=== PATIENT | male | born 1970 | race Caucasian/White ===

== ENCOUNTER → 2020-04-26 13:04 | Outpatient (CLI) | payer OTHER, SELFPAY ==
--- NOTE | ~2020-04-26 | XR_ITS ---
XR_CERV2-3V_CR DATE: 04/26/2020 13:19 INDICATION: Neck pain TECHNIQUE: AP, open-mouth, lateral, swimmer views COMPARISON: None FINDINGS: C1 and C2 are normally aligned and the odontoid process is intact. No fracture or dislocati on or locked facet or prevertebral soft tissue swelling. There is straightening of the cervical spine. There is moderate degenerative disease at C4-5, C5-C6 and C6-7. IMPRESSION: Straightening Moderately prominent degenerative disc disease at C4-5, C5-6 and C6-7 Reviewed, dictated and finalized at [facility]. Reviewed, dictated and finalized at [facility].
== END ==
PROVIDERS: PCP Physician Assistant; Visit Provider Physician Assistant
DX: M51.24 Other intervertebral disc displacement, thoracic region (principal)
CPT/HCPCS: 72040

== ENCOUNTER → 2021-09-02 15:24 | Outpatient (CLI) | payer OTHER, SELFPAY ==
--- NOTE | ~2021-09-02 | MR_ITS ---
EXAMINATION: MR cervical spine wo con DATE: 09/02/2021 16:29 INDICATION: Neck pain. Cervical radiculopathy. TECHNIQUE: Magnetic resonance imaging (MRI) of the cervical spine was performed without intravenous c ontrast. Sequences included sagittal T2-weighted FSE, sagittal STIR FSE, sagittal T1-weighted FSE, ax ial MERGE, and axial T2-weighted FSE. COMPARISON: Cervical spine radiographs 04/26/2020 FINDINGS: There is 7 degrees dextrocurvature of cervicothoracic spine. Vertebral body heights are nor mal. There is moderately decreased disc height at C4-C5, C5-C6, and C6-C7. The spinal cord signal int ensity is normal. The following disc levels are specifically discussed: C2-C3: The disc does not extend beyond the endplate margin. There is no uncovertebral joint osteoarth ritis. There is mild bilateral facet joint osteoarthritis. There is no neural foraminal stenosis. The re is no central canal stenosis. C3-C4: The disc does not extend beyond the endplate margin. There is mild bilateral uncovertebral rai nt osteoarthritis. There is moderate bilateral facet joint osteoarthritis. There is mild bilateral ne ural foraminal stenosis. There is no central canal stenosis. C4-C5: The disc is bulging. There is moderate left uncovertebral joint osteoarthritis. There is sever e bilateral facet joint osteoarthritis. There is mild bilateral neural foraminal stenosis. There is m ild central canal stenosis. C5-C6: The disc is bulging. There is moderate right and severe left uncovertebral joint osteoarthriti s. There is mild right and moderate left facet joint osteoarthritis. There is mild right and moderate left neural foraminal stenosis. There is mild central canal stenosis. C6-C7: The disc is bulging. There is moderate bilateral uncovertebral joint osteoarthritis. There is moderate bilateral facet joint osteoarthritis. There is mild bilateral neural foraminal stenosis. The re is mild central canal stenosis. C7-T1: The disc does not extend beyond the endplate margin. There is no uncovertebral joint osteoarth ritis. There is moderate right and severe left facet joint osteoarthritis. There is mild bilateral ne ural foraminal stenosis. There is no central canal stenosis. IMPRESSION: 1. Moderate cervical spondylosis. Reviewed, dictated and finalized at location [facility]. [facility] [employer]
== END ==
PROVIDERS: PCP Physician Assistant; Visit Provider Physician Assistant
DX: M47.22 Other spondylosis with radiculopathy, cervical region (principal)
CPT/HCPCS: 72141

== ENCOUNTER 2023-10-13 09:28 | Outpatient (CLI) | payer OTHER, SELFPAY ==
--- NOTE | 2023-10-26 18:18 | WPDHOMESLEEP ---
Sleep Study - Home Unattended Date of Study: 10/13/23 Ordering Provider: German Sanabria MD Interpreting Provider: Jackie Silva, DO Home Sleep Study Type: Watch PAT Height: 1.75 m Weight: 88.451 kg Body Mass Index: 28.8 Neck Circumference (inches): 16.5 [place]: 7 Reason for Sleep Study Snoring, daytime hypersomnia Sleep History The patient is a 53-year-old male with diabetes, hyperlipidemia and history of tobacco use that had a sleep study ordered by his primary care physician for evaluation of sleep apnea. The patient denies awakening from sleep short of breath. He rarely awakens at night with heartburn, belching or cough. He frequently snores and is frequently loud enough others complain. He rarely has trouble sleeping when he has a cold. He denies waking up gasping for air throughout the night. He frequently has breathing problems at night observed by himself or others. He rarely sweats excessively at night. He denies having heart palpitations or irregular heartbeats during the night. He occasionally falls asleep during the day but never while driving. He denies sleep paralysis and cataplexy. He rarely has trouble at school or work due to sleepiness. He rarely experiences vivid dreamlike scenes upon awakening or falling asleep. He denies feeling afraid of going to sleep. He rarely has nightmares. He occasionally remembers his dreams. He frequently has thoughts racing through his mind. He rarely feels sad or depressed. He occasionally has anxiety. He occasionally has muscular tension. He rarely notices parts of his body jerk. He rarely kicks during the night. He rarely has crawling and aching feelings in his legs and rarely has leg pain during the night. He denies grinding his teeth during sleep and denies awakening with morning jaw pain. He is frequently bothered by pain during the day and occasionally awakened by pain during the night. He occasionally wakes feeling stiff in the morning he occasionally wakes up with sore achy muscles. He frequently wakes up with pain in the neck, spine and other joints. He goes to bed at 11:00 p.m. on weekdays and at midnight on the weekends. The amount of time it takes for him to fall asleep is variable. He wakes up 3-4 times throughout the night to urinate or change position and is able to fall back asleep within 5 minutes. He wakes up at either 5:15 a.m. or 9:00 a.m. on weekdays and at 9:00 a.m. on the weekends. He typically gets 6 hours of sleep per night. He will stay in bed for 5 minutes after waking up in the morning. He currently lives with his he denies consuming any caffeinated beverages within 2 hours of bedtime. He denies engaging in physical exercise before bedtime. He will watch television before falling asleep. He will take naps in the afternoon or the evening but they are not refreshing. He consumes 6 caffeinated beverages per day. He consumes 2 alcoholic beverages per day. He quit smoking cigarettes. He denies recreational drug use. [facility] Surgical History Surgical History History of appendectomy Family History Family History Father Diabetes mellitus Hypertension Hyperlipidemia Grandparent Diabetes mellitus Hypertension Cerebrovascular accident Other Family history of hypercholesterolemia Social History Social History Smoking packs per day: 1 Smoking cigarettes per day: 20.0 Years smoked: 30 Smoking pack-years: 30.00 Smoking status: Former smoker (vaping) Tobacco type: e-cigarettes/vaping Additional smoking assessment comments: currently vaping with nicotine Alcohol intake: current Alcohol use details: social Substance use type: does not use Lack of Transportation: No Lack of Food: Never True Current Housing: [facility]
[2023-10-26 18:28] VITALS: BMI 28.8
== END 2023-10-14 12:46 | disposition home or self-care (01) ==
LOC: ANHCSM 09:29
PROVIDERS: PCP Family Medicine; Visit Provider Family Medicine
DX: G47.30 Sleep apnea, unspecified (principal); G47.33 Obstructive sleep apnea (adult) (pediatric); G47.31 Primary central sleep apnea
CPT/HCPCS: 95800

== ENCOUNTER 2023-11-03 08:45 | Outpatient (CLI) | payer OTHER, SELFPAY ==
--- NOTE | 2023-11-03 08:53 | ECHO_ITS ---
Patient Info Name: Shawn Trevizo Age: 53 years : 1970 Gender: Male Ht: 69 in Wt: 200 lbs BSA: 2.12 m2 HR: 71 bpm BP: 136 / 82 mmHg Technical Quality: Good Exam Date: 11/03/2023 9:02 AM Exam Location: Echo Lab Patient Status: Outpatient Admit Date: 11/03/2023 Staff Ordering Physician: Sandy [employer] Transportation Technician: Attending Provider: German Sanabria MD Referring Physician: Georgia CARRENO; Exam Type: CA echo doppler color flow Study Info Indications - sleep apnea Complete two-dimensional, color flow and Doppler transthoracic echocardiogram is performed. Summary 1. Complete two-dimensional, color flow and Doppler transthoracic echocardiogram is performed. 2. Left ventricular chamber dimension is normal. 3. Left ventricular systolic function is normal, estimated at 60-65%. 4. The left ventricular diastolic function is grade I diastolic dysfunction. 5. E/e' 6 is not elevated. 6. Left atrial chamber dimension is mildly enlarged. 7. No pulmonary hypertension, estimated pulmonary arterial systolic pressure is 27 mmHg. 8. There is trace pulmonic regurgitation. Left Ventricle E/e' 6 is not elevated. Left ventricular chamber dimension is normal. Left ventricular systolic function is normal, estimated at 60-65%. The left ventricular diastolic function is grade I diastolic dysfunction. Right Ventricle Right ventricular systolic function is normal and with normal TAPSE 2.2 cm. Right ventricular chamber dimension is normal. Left Atria Left atrial chamber dimension is mildly enlarged. Right Atria Right atrial chamber dimension is normal. Aortic Valve The aortic valve is trileaflet. There is no aortic valve stenosis. There is no aortic valve regurgitation. Pulmonic Valve There is trace pulmonic regurgitation. Mitral Valve There is no mitral valve stenosis. There is no mitral valve regurgitation. Tricuspid Valve There is no tricuspid valve regurgitation. No pulmonary hypertension, estimated pulmonary arterial systolic pressure is 27 mmHg. Pericardium/Pleural There is no pericardial effusion. Inferior Vena Cava Normal inferior vena cava with >50% collapse upon inspiration consistent with normal right atrial pressure, 5 mmHg. Aorta The aortic root size at the sinus of Valsalva is normal. Left Ventricular Outflow Tract Name Value Normal LVOT 2D LVOT Diameter 2.1 cm LVOT Doppler LVOT Peak Gradient 3 mmHg LVOT Mean Gradient 2 mmHg LVOT VTI 19 cm LVOT VTI/AV VTI Ratio 0.7 LVOT Stroke Volume 68 ml LVOT CO 4.5 l/min LVOT CI 2.1 l/min/m2 Pulmonic Valve Name Value Normal PV Doppler PV Peak Gradient 4 mmHg PV Regurgitation Doppler
== END 2023-11-03 08:46 | disposition home or self-care (01) ==
PROVIDERS: PCP Family Medicine; Visit Provider Family Medicine
DX: G47.33 Obstructive sleep apnea (adult) (pediatric) (principal); G47.31 Primary central sleep apnea
CPT/HCPCS: 93306

== ENCOUNTER 2023-11-09 09:28 | Outpatient (CLI) | payer OTHER, SELFPAY ==
[2023-11-30 23:06] VITALS: BMI 29.2
--- NOTE | 2023-11-30 23:06 | WPDSLEEPSTUD ---
Sleep Study Date of Study: 11/09/23 Ordering Provider: ENDER Wei Interpreting Physician: Shagufta Nieves MD Sleep Study Type: CPAP Titration Height: 1.75 m Weight: 89.811 kg Body Mass Index: 29.2 Neck Circumference (inches): 17 [place]: 7 Reason for Sleep Study * 10/13/2023, WatchPat home sleep test = overall AHI of 17.9 with desaturation down to 85%.? This is consistent with?moderate sleep apnea.?The central apnea index was 8.8. The REM AHI was 41.6. He returns for a CPAP titration. Sleep History Shawn Trevizo is a 53-year-old man with diabetes, hyperlipidemia and history of tobacco use. He had a home sleep test showing moderate obstructive sleep apnea and an elevated central apnea hypopnea index, returns to the sleep alb for a CPAP titration. The patient denies awakening from sleep short of breath.? He rarely awakens at night with heartburn, belching or coughing.? He frequently snores and is frequently loud enough others complain.? He rarely has trouble sleeping when he has a cold.? He denies waking up gasping for air at night.? He frequently has breathing problems at night. He rarely sweats excessively at night.? He denies having heart palpitations or irregular heartbeats during the night.? He occasionally falls asleep during the day but never while driving.? He denies feeling paralyzed on waking or falling asleep. He does not have loss of muscle tone with strong emotion. He rarely has trouble at work due to excessive sleepiness.? He rarely experiences vivid dreamlike scenes upon awakening or falling asleep.? He denies feeling afraid of going to sleep.? He rarely has nightmares.? He occasionally remembers his dreams.? He frequently has thoughts racing through his mind.? He rarely feels sad or depressed.? He occasionally has anxiety.? He occasionally has muscular tension.? He rarely notices parts of his body jerk.? He rarely kicks during the night.? He rarely has crawling and aching feelings in his legs and rarely has leg pain during the night.? He denies grinding his teeth during sleep and denies awakening with morning jaw pain.? He is frequently bothered by pain during the day and occasionally awakened by pain during the night.? He occasionally wakes feeling stiff in the morning he occasionally wakes up with sore achy muscles.? He frequently wakes up with pain in the neck, spine and other joints.? Normal bedtime is 11:00 p.m. on weekdays and at midnight on the weekends.? The amount of time it takes for him to fall asleep is variable.? He wakes up 3-4 times throughout the night to urinate or change position and is able to return to sleep within 5 minutes.? He wakes up at either 5:15 a.m. or 9:00 a.m. on weekdays and at 9:00 a.m. on the weekends. He typically gets 6 hours of sleep per night.? He stays in bed for 5 minutes after waking up in the morning.? He lives with his . He takes naps in the afternoon or the evening, however a short nap is not refreshing. ? Habits: Tobacco: former smoker. Caffeine: 6 caffeinated beverages per day.? Alcohol: 2 alcoholic beverages per day.? Recreational substances: none. [facility] Past Medical History Medical History Central sleep apnea Fatigue Mixed hyperlipidemia MIRTHA (obstructive sleep apnea) Surgical History Surgical History History of appendectomy Family History Family History Father Diabetes mellitus Hypertension Hyperlipidemia Grandparent Diabetes mellitus Hypertension Cerebrovascular accident Other Family history of hypercholesterolemia Social History Social History Smoking packs per day: 1 Smoking cigarettes per day: 20.0 Years smoked: 30 Smoking pack-years: 30.00 Smoking status: Former smoker (vaping) Tobacco type: e-ci
== END 2023-11-10 07:10 | disposition home or self-care (01) ==
LOC: ANHCSM 09:28
PROVIDERS: PCP Family Medicine; Visit Provider Nurse Practitioner Family
DX: G47.31 Primary central sleep apnea (principal)
CPT/HCPCS: 95811

== ENCOUNTER 2024-03-29 07:29 | Outpatient (CLI) | payer OTHER, SELFPAY ==
--- NOTE | ~2024-03-29 | MR_ITS ---
MRI of the cervical spine Clinical History: Radiculopathy Technique: Axial T2-weighted and gradient images, and sagittal T1-weighted, T2-weighted, and STIR jesus manuel ges were acquired. Findings: There is no fracture or subluxation of the cervical spine. Vertebral bodies maintain normal height and alignment. No suspicious bone marrow signal abnormality seen. At C2-C3, there is no disc bulge or herniation. No spinal canal stenosis, cord compression or neural foraminal narrowing. At C3-C4, there is no disc bulge or herniation. There is mild facet arthropathy, left worse than righ t. There is mild left neural foraminal narrowing. Right neural foramen preserved. No canal stenosis o r cord compression. At C4-C5, there is left paracentral disc osteophyte complex with mild facet arthropathy. No spinal ca nal stenosis, cord compression, or definite neural foraminal narrowing. At C5-C6, there is moderate degenerative disc narrowing. There is disc osteophyte complex, most prono unced in the left paracentral region, with mild flattening the ventral cord. There is bilateral neura l foraminal narrowing. At C6-C7, there is moderate degenerative disc narrowing. There is disc osteophyte complex, with mild canal stenosis but no mick cord compression. There is bilateral neural foraminal narrowing. No abnormal signal seen in the spinal cord. Paravertebral soft tissues are unremarkable. Impression: Moderate degenerative spondylosis, especially at C5-C6 and C6-C7, as detailed above. Reviewed, dictated and finalized at [facility]. Impression: Moderate degenerative spondylosis, especially at C5-C6 and C6-C7, as detailed rianna martinez.
== END 2024-03-29 07:30 ==
LOC: MICIMG 07:30
PROVIDERS: PCP Family Medicine; Visit Provider Nurse Practitioner Family
DX: M47.22 Other spondylosis with radiculopathy, cervical region (principal)
CPT/HCPCS: 72141

== ENCOUNTER 2024-08-15 08:10 | Day surgery (SDC) | payer OTHER, SELFPAY ==
[2024-08-03 14:18] VITALS: BMI 30.2
--- NOTE | ~2024-08-15 | XR_ITS ---
EXAMINATION: XR fluoroscopy no charge DATE: 08/15/2024 9:15 [employer] INDICATION: DIG/PROG LEFT C5,C6,C7 MEDIAL BRANCH BLK . TECHNIQUE: 5 fluoroscopic images and 11 cine clips of the cervical spine were obtained during diagnos tic/prognostic left C5, C6, C7 medial branch block, performed by Shawn Simon MD. I was not prese nt during the procedure. Fluoroscopy exposure time was 37.6 seconds. Air Kerma 8.25 mGy. COMPARISON: None FINDINGS/IMPRESSION: Fluoroscopic documentation of diagnostic/prognostic left C5, C6, C7 medial branch block. Please refer to the operative note for complete procedural details . Reviewed, dictated and finalized at location [facility]. [employer]
--- NOTE | 2024-08-15 05:40 | WPDHPUPDATE1 ---
History and Physical Update Update Date/Time: 08/15/24 05:40 History and Physical has been reviewed, including an updated exam of the patient. There are NO changes in the patient's condition. Risks, benefits, and alternatives have been discussed and questions answered. Patient agrees to proceed with procedure.
--- NOTE | 2024-08-15 05:41 | P.OP_ITS ---
Procedure Note - Detailed Date of Procedure 08/15/24 Pre-op Diagnosis Cervicalgia Post-op Diagnosis Same Procedure Performed Diagnostic left Cervical Medial Branch Nerve Blocks at C5, C6, C7 Blocking the Ipsilateral C5-6, C6-7 facet joints under Fluoroscopic Guidance and with Contrast Control (2 levels blocked). Surgeon Shawn Simon MD Ambulance Operations Supervisor None. Anesthesia Local Description of Procedure INFORMED CONSENT: Risks, benefits and alternatives to the procedure were discussed in detail with the patient who expressed explicit understanding and consent to proceed. Patient was informed verbally and in written form regarding the risks associated with the procedure including the low risk of serious infection, bleeding/bruising, allergic reaction, nerve or organ injury, paralysis, procedural site pain or discomfort, worsening pain and/or mobility, failure to treat and/or disfigurement. The patient expressed explicit understanding and consent to proceed. All materials required for the procedure were available prior to procedure start. Site and side were marked prior to procedure and confirmed in the presence of the patient. PROCEDURE IN DETAIL: The patient was brought to the procedural suite and placed in the prone position with head stabilized with a ProneView pillow. Patient was made comfortable with use of pillows under the head/chest, hips and ankles. Skin overlying the injection site on the affected side(s) was prepared broadly with ChloraPrep applicator and draped in a sterile manner. Aseptic technique was used throughout. The endplates of the vertebral bodies at the site(s) of interest were aligned in the AP view. Ipsilateral oblique angulation was utilized to optimize visualization of the pars interarticularis at each target site. Local anesthesia was established by infiltration with approximately 5 mL of 0.5% lidocaine via a 1-1/2 inch 27-gauge needle divided over each injection site. A 25-gauge 3.5 inch Quincke spinal needle was advanced until the needle tip contacted the periosteum of the pars interarticularis at the target site, left C5 medial branch. Lateral view was utilized to confirm the appropriate placement of the needle tip just anterior to the center point of the interarticularis. In the Lateral view, 0.25 mL of Omnipaque 300 contrast medium was injected after negative aspiration for CSF, blood or other bodily fluid, showing appropriate extra-articular spread of contrast without evidence of intravascular, foraminal or intrathecal placement. A 0.25 mL solution of 0.5% PF bupivacaine was injected after negative repeat aspiration. Appropriate spread of the injectate was confirmed with washout of previously injected contrast. No parasthesias were elicited. Needle was removed completely intact without difficulty. The same exact procedure was repeated for all remaining levels on the i psilateral side, left C6,C7 medial branches, modified as necessary to accommodate for the new target location with identical findings and results and no evidence of complication. Images were saved and documented in the patient chart. Patient's skin was cleansed and sterile bandage applied. The patient tolerated the procedure well. The patient was transported to the recovery area in stable condition where they were observed for an appropriate amount of time prior to discharge, without evidence of complication. Patient was instructed on the appropriate completion of a pain diary over the next 12-24 hours. The patient was instructed to avoid excessive activity for the next 48 hours, including climbing and frequent use of stairs. Showers only for 48 hours. They were instructed not to drive or operate heavy machinery for 24 hours. They are to monitor for severe headaches, fevers, chills, night sweats, erythema/swelling at the site or any other signs of infection, bleeding/bruising, bowel or bladder changes as well as new pain, weakness or numbness in the upper or lower extremity. Should they notice these changes, they are instructed to call our office immediately or report directly to the nearest Emergency Department if no answer or if after posted office hours. COMPLICATIONS: None COMMENTS: None CONTRAST WASTED: 29.25mL Omnipaque 300. Complications No immediate complications Condition Stable Disposition Same day [facility] Billing Surgery - Charge Forward: Surgery Billing
[2024-08-15 09:05] VITALS: BP 116/87; PULSE 64; RESP 18; TEMP 36; O2SAT 99
[2024-08-15 09:07] VITALS: BMI 30.3
[2024-08-15 09:24] VITALS: BP 130/81; PULSE 66; RESP 15; O2SAT 97
[2024-08-15 09:27] VITALS: BP 122/77; PULSE 61; RESP 16; O2SAT 97
[2024-08-15] MEDS: LIDOCAINE HCL 1% PF INJ 5 ML VIAL AFFCTD EYE (09:31)
[2024-08-15 09:32] VITALS: BP 125/84; PULSE 65; RESP 14; O2SAT 98
[2024-08-15] MEDS: BUPivacaine HCL 0.5% 10 ML AMP INFILTRATE (09:37)
[2024-08-15 09:38] VITALS: BP 125/87; PULSE 65; RESP 18; O2SAT 100
== END 2024-08-15 09:50 | disposition home or self-care (01) ==
PROVIDERS: PCP Family Medicine; Visit Provider Anesthesiology Pain Medicine
PROC: (CPT 64490; principal; 2024-08-15 10:00)
DX: M54.2 Cervicalgia (principal)
CPT/HCPCS: 64490; 64491; 99199

== ENCOUNTER 2024-10-24 06:23 | Day surgery (SDC) | payer OTHER, SELFPAY ==
[2024-10-03 09:54] VITALS: BMI 30.2
--- NOTE | ~2024-10-24 | XR_ITS ---
INTRAOPERATIVE FLUOROSCOPY: CLINICAL HISTORY: 54 years old Male; DIAG/PROG KILEY MEDIAL BRANCH BLOCK C5,C6,C7 PROCEDURE COMMENTS: Limited intraoperative fluoroscopy of the cervical spine was performed. CUMULATIVE DOSE: 7.3 mGy FLUOROSCOPY TIME: 51.7 seconds FINDINGS/IMPRESSION: Please refer to operative note for further details. Reviewed, dictated and finalized at location A. ID HAND
--- NOTE | 2024-10-24 05:46 | PM.HPGS ---
History of Present Illness History of Present Illness Consent: Risks, benefits, and alternatives have been discussed and questions answered. Patient agrees to proceed with procedure. Chief complaint: Spondylosis w/o Myelopathy/Radiculopathy, chronic Narrative: Shawn Trevizo is a 54 year old male with chronic, recalcitrant and disabling bilateral cervical spine pain secondary to degenerative spondylosis with failure to respond to aggressive conservative measures including PT, oral and topical analgesics, opioid and nonopioid analgesics, rest, time and activity/behavioral modification over the past 1-2 years who presents for diagnostic/prognostic medial branch blocks of the bilateral C5, C6, C7 medial branches (#2) addressing the bilateral C5-6, C6-7 facet joints under fluoroscopic guidance and with contrast control. Review of Systems Review of Systems: Patient denies any new infectious, allergic, cardiopulmonary, neurologic or constitutional symptoms or changes in activity tolerance or exercise capacity including new or progressive SOB/SMITH, peripheral edema, productive cough, dysuria, nausea/vomiting, diarrhea, weight change, fevers/chills/night sweats, new or progressive neurologic deficit, cognitive or mood changes since last seen, except as documented in the HPI. All systems reviewed & are unremarkable except as noted in HPI and below PMFSH Past Medical History Medical History Central sleep apnea MIRTHA (obstructive sleep apnea) Fatigue Mixed hyperlipidemia Surgical History Surgical History History of appendectomy Family History Family History Father Diabetes mellitus Hypertension Hyperlipidemia Grandparent Diabetes mellitus Hypertension Cerebrovascular accident Other Family history of hypercholesterolemia Social History Social History Smoking packs per day: 1 Smoking cigarettes per day: 20.0 Years smoked: 35 Smoking pack-years: 35.00 Smoking status: Former smoker Tobacco type: cigarettes and e-cigarettes/vaping Second hand tobacco smoke exposure: Yes Smoking end date: 11/19/23 Additional smoking assessment comments: CURRENTLY VAPES NICOTINE DAILY Alcohol intake: current Drinks per week: 5 Alcohol use details: social Substance use: never Substance use type: does not use Do You Feel Safe in your Home?: Yes Lack of Transportation: No Lack of Food: Never True Current Housing: I Have Housing Concerned About Future Housing: No Difficulty Paying Gas/Electric Bills: No Difficulty Paying for Meds: No Currently Unemployed: No Education: High School Diploma/GED Difficulty w/ Childcare or Family Care: No Living arrangements: with family Occupation/Education: occupation Gender identity (if verbalized by the patient): Male Spiritual care concerns: No Meds Home Medications and Allergies Home Medications ?Medication ?Instructions ?Recorded ?Confirmed ?Type blood-glucose meter,continuous #1 ea 04/08/22 05/15/24 Rx (Dexcom G6 Wellness Specialist) meloxicam 7.5 mg tablet 7.5 mg PO DAILY PRN Pain 07/10/22 10/03/24 History insulin aspart U-100 100 unit/mL 20 unit (0.2 mL) subcut TID 3 04/22/23 10/03/24 Rx (3 mL) subcutaneous pen (Novolog months #54 mL FlexPen U-100 Insulin aspart) CPAP #1 ea 12/01/23 05/15/24 Rx tramadol 50 mg tablet 50 mg PO Q4H PRN pain #30 tabs 02/23/24 10/03/24 Rx rosuvastatin 5 mg tablet 5 mg PO DAILY #90 tabs 03/13/24 10/03/24 Rx pen needle, diabetic 32 gauge x #400 ea 05/23/24 Rx 5/32 (BD Ultra-Fine Asya Pen Needle) magnesium glycinate 100 mg (as 200 mg PO DAILY 08/03/24 10/03/24 History glycinate) tablet multivitamin with minerals-folic 1 tablet PO DAILY 08/03/24 10/03/24 History acid 0.4 mg tablet blood-glucose transmitter (Dexcom #3 ea 09/22/24 Rx G6 Transmitter device) insulin glargine 100 unit/mL (3 42 unit (0.42 mL) subcut QPM #15 mL 09/27/24 10/03/24 Rx mL) subcutaneous pen (Lantus Solostar U-100 Insulin) blood-glucose sensor (Dexcom G6 #3 ea 10/04/24 Rx Sensor device) Allergies Allergy/AdvReac Type Severity Reaction Status Date / Time azithromycin Allergy Unknown Unknown Verified 10/03/24 09:52 Exam Narrative: The patient's physical exam is essentially unchanged from prior examination on 09/05/2024. Specifically, patient demonstrates normal lung capacity, tidal volume and respiratory rate without wheezes, crackles, rales or rubs. Heart rate and rhythm are regular without murmurs, gallops or rubs. No JVD. Pulses 2+ globally without increasing peripheral edema. AAOx3 with no evidence of confusion, intoxication or altered mental state, NC/AT without acute distress or altered consciousness. Speech, cognition, mood, insight and judgment at baseline and within normal limits. Assessment and Plan Assessment and plan (1) Cervical spondylosis: Code(s): M47.812 - Spondylosis without myelopathy or radiculopathy, cervical region Status: Acute Assessment and Plan: proceed as planned with diagnostic/prognostic medial branch blocks of the bilateral C5, C6, C7 medial branches (#2) addressing the bilateral C5-6, C6-7 facet joints under fluoroscopic guidance and with contrast control. (2) Cervicalgia: Code(s): M54.2 - Cervicalgia Status: Acute (3) Chronic pain: Code(s): G89.29 - Other chronic pain Status: Acute
--- NOTE | 2024-10-24 05:50 | P.OP_ITS ---
Procedure Note - Detailed Date of Procedure 10/24/24 Pre-op Diagnosis Spondylosis w/o Myelopathy/Radiculopathy, chronic Post-op Diagnosis Same Procedure Performed Diagnostic bilateral Cervical Medial Branch Nerve Blocks at C5, C6, C7 B locking the bilateral C5-6, C6-7 facet joints under Fluoroscopic Guidance and with Contrast Control ( 4 levels blocked). Surgeon Shawn Simon MD Human Resources Department Supervisor None. Anesthesia Local Description of Procedure INFORMED CONSENT: Risks, benefits and alternatives to the procedure were discussed in detail with the patient who expressed explicit understanding and consent to proceed. Patient was informed verbally and in written form regarding the risks associated with the procedure including the low risk of serious infection, bleeding/bruising, allergic reaction, nerve or organ injury, paralysis, procedural site pain or discomfort, worsening pain and/or mobility, failure to treat and/or disfigurement. The patient expressed explicit understanding and consent to proceed. All materials required for the procedure were available prior to procedure start. Site and side were marked prior to procedure and confirmed in the presence of the patient. PROCEDURE IN DETAIL: The patient was brought to the procedural suite and placed in the prone position with head stabilized with a ProneView pillow. Patient was made comfortable with use of pillows under the head/chest, hips and ankles. Skin overlying the injection site on the affected side(s) was prepared broadly with ChloraPrep applicator and draped in a sterile manner. Aseptic technique was used throughout. The endplates of the vertebral bodies at the site(s) of interest were aligned in the AP view. Ipsilateral oblique angulation was utilized to optimize visualization of the pars interarticularis at each target site. Local anesthesia was established by infiltration with approximately 5 mL of 0.5% lidocaine via a 1-1/2 inch 27-gauge needle divided over each injection site. A 25-gauge 3.5 inch Quincke spinal needle was advanced until the needle tip contacted the periosteum of the pars interarticularis at the target site, right C5 medial branch. Lateral view was utilized to confirm the appropriate placement of the needle tip just anterior to the center point of the interarticularis. In the Lateral view, 0.25 mL of Omnipaque 300 contrast medium was injected after negative aspiration for CSF, blood or other bodily fluid, showing appropriate extra-articular spread of contrast without evidence of intravascular, foraminal or intrathecal placement. A 0.25 mL solution of 2.0% PF lidocaine was injected after negative repeat aspiration. Appropriate spread of the injectate was confirmed with washout of previously injected contrast. No parasthesias were elicited. Needle was removed completely intact without difficulty. The same exact procedure was repeated for all remaining levels on the ipsilateral side, right C6,C7 medial branches, modified as necessary to accommodate for the new target location with identical findings and results and no evidence of complication. The same exact procedure was repeated for all remaining levels on the contralateral side, left C5, C6, C7 medial branches, modified as necessary to accommodate for the new target location with identical findings and results and no evidence of complication. Images were saved and documented in the patient chart. Patient's skin was cleansed and sterile bandage applied. The patient tolerated the procedure well. The patient was transported to the recovery area in stable condition where they were observed for an appropriate amount of time prior to discharge, without evidence of complication. Patient was instructed on the appropriate completion of a pain diary over the next 12-24 hours. The patient was instructed to avoid excessive activity for the next 48 hours, including climbing and frequent use of stairs. Showers only for 48 hours. They were instructed not to drive or operate heavy machinery for 24 hours. They are to monitor for severe headaches, fevers, chills, night sweats, erythema/swelling at the site or any other signs of infection, bleeding/bruising, bowel or bladder changes as well as new pain, weakness or numbness in the upper or lower extremity. Should they notice these changes, they are instructed to call our office immediately or report directly to the nearest Emergency Department if no answer or if after posted office hours. COMPLICATIONS: None COMMENTS: None CONTRAST WASTED: 28.5mL Omnipaque 300. Complications No immediate complications Condition Stable Disposition Same day [facility] Billing Surgery - Charge Forward: Surgery Billing
--- NOTE | 2024-10-24 05:50 | WPDHPUPDATE1 ---
History and Physical Update Update Date/Time: 10/24/24 05:50 History and Physical has been reviewed, including an updated exam of the patient. There are NO changes in the patient's condition. Risks, benefits, and alternatives have been discussed and questions answered. Patient agrees to proceed with procedure.
--- OUTSIDE RECORDS SUMMARY | 2024-10-24 06:56 | XMS_ITS | Clinical Summary ---
Author Organization [facility] Address [address] [place] [address]. [place], [place] [id number] [place] [id number] Care Team Providers Care Welder Helper Name Role Phone Unavailable Primary Care Provider Unavailabl e Social History Tobacco Use Types Packs/Day Years Used Date Smoking Tobacco: Never Assessed Sex and Gender Information Value Date Recorded Sex Assigned at Not on file Legal Sex Male 8:23 PM CDT Gender Identity Not on file Sexual Orientation Not on file Last Filed Vital Signs Vital Sign Reading Time Taken Comments Blood Pressure 130/85 12/17/2008 11:20 AM CDT Pulse 75 12/17/2008 11:20 AM CDT Temperature - - Respiratory Rate - - Oxygen Saturation - - Inhaled Oxygen Concentration - - Weight 76.2 kg (168 lb) 12/17/2008 11:20 AM CDT Height 177.8 cm (5' 10 ) 12/17/2008 11:20 AM CDT Body Mass Index 24.11 12/17/2008 11:20 AM CDT Plan of Treatment Health Maintenance Due Date Last Done Comments Colorectal Cancer Screening Colonoscopy (10 Years) 1969 Annual Physical 1972 Hepatitis C 1987 DTaP, Tdap and Td Vaccines ( 1 - Tdap) 1988 Hepatitis B Vaccines (1 of 3 - 19+ 3-dose series) 1988 Zoster Vaccines (1 of 2) 2019 COVID-19 Vaccine ( - 2023-2 5 season) 2024 Influenza Adult (#1) 2024 Meningococcal B Vaccine Aged Out No l onger eligible based on patient's age to complete this topic Meningococcal Vaccine Aged Out No gilles lico eligible based on patient's age to complete this topic Pneumococcal Vaccine: Pediat rics (0 to 5 Years) and At-Risk Patients (6 to 64 Years) Aged Out No longer eligible b ased on patient's age to complete this topic RSV Immunizations Under 20 Months Aged Out No longer eligible based on patient's age to complete this topic
[2024-10-24 07:16] VITALS: BMI 30.9
[2024-10-24 07:17] VITALS: BP 131/80; PULSE 73; RESP 18; TEMP 36.2; O2SAT 100
[2024-10-24 08:02] VITALS: BP 139/91; PULSE 65; RESP 16; O2SAT 98
[2024-10-24 08:07] VITALS: BP 141/92; PULSE 68; RESP 18; O2SAT 96
[2024-10-24 08:17] VITALS: BP 120/70; PULSE 65; RESP 12; O2SAT 98
[2024-10-24] MEDS: LIDOCAINE 2% PF LOCAL INJ 5 ML VIAL INFILTRATE (08:23)
[2024-10-24] MEDS: LIDOCAINE 1% PF INJ 5 ML VIAL 3.5 ML INFILTRATE (08:24)
[2024-10-24 08:29] VITALS: BP 126/88; PULSE 68; RESP 16; O2SAT 100
== END 2024-10-24 08:42 ==
LOC: ASC 06:55
PROVIDERS: PCP Family Medicine; Visit Provider Anesthesiology Pain Medicine
PROC: (CPT 64490; principal; 2024-10-24 08:00)
DX: M47.812 Spondylosis without myelopathy or radiculopathy, cervical region (principal); G89.29 Other chronic pain
CPT/HCPCS: 64490 ×2; 64491 ×2; 64492 ×2; 99199

== ENCOUNTER 2024-12-07 09:58 | Outpatient (CLI) | payer OTHER, SELFPAY ==
[2024-12-07 10:29] LABS: Anion Gap 8 mmol/L (4-12); Blood Urea Nitrogen 18 mg/dL (9-20); Calcium 9.2 mg/dL (8.4-10.2); Carbon Dioxide 29 mmol/L (22-30); Chloride 102 mmol/L (98-107); Estimated Glomerular Filt Rate > 60; Glucose 105 mg/dL (65-110); Potassium 4.2 mmol/L (3.4-5.0); Sodium 139 mmol/L (137-145)
--- NOTE | 2024-12-07 10:33 | ECG_ITS ---
Test Date: 2024-12-07 10:41:26 Measurements Intervals [place] Rate: 66 P: 33 AL: 140 QRS: 54 QRSD: 89 T: 52 QT: 401 QTc: 423 Interpretive Statements SINUS RHYTHM No previous ECG available for comparison Electronically Signed On 12-07-2024 12:11:11 CDT by Jason Abreu M.D.
--- OUTSIDE RECORDS SUMMARY | 2024-12-07 10:39 | XMS_ITS | Clinical Summary ---
Author Organization [facility] Address [facility] [place] [address] Care Team Providers Care Product Designer Name Role Phone Unavailable Primary Care Provider [...] Vaccines (1 of 2) 2019 COVID-19 Vaccine (2023-2 5 season) 2024 Influenza Adult (#1) 2024 [...]
== END 2024-12-07 09:59 | disposition home or self-care (01) ==
LOC: ANHLAB 10:00
PROVIDERS: PCP Family Medicine; Visit Provider Anesthesiology
DX: E13.9 Other specified diabetes mellitus without complications (principal); Z01.818 Encounter for other preprocedural examination; E78.2 Mixed hyperlipidemia
CPT/HCPCS: 36415; 80048; 93005

== ENCOUNTER 2024-12-19 05:53 | Day surgery (SDC) | payer OTHER, SELFPAY ==
[2024-11-22 12:02] VITALS: BMI 30.7
[2024-11-30 11:21] VITALS: BMI 31.1
--- NOTE | 2024-12-18 13:32 | P.PNAN_ITS ---
Anes - Initial Pre Proc Eval Procedure: Operation Date: 12/19/24 07:30 Proposed Procedures p Thermal Radiofrequency Ablation Bilateral C5, C6, C7 Medial Branches Addressing Bilateral C5, C6, C7 Facet Joints under Fluoroscopic Guidance with Contrast Control - Shawn Simon MD Date/Time: 12/18/24 13:32 Surgeon: Shawn Simon MD Pre Op Diagnosis: Spondylosis w/o Myelopathy/Radiculopathy, Spinal Patient Data Age: 54 Gender: M Height: 1.75 m Weight: 95.5 kg Allergies Allergy/AdvReac Type Severity Reaction Status Date / Time ampicillin Allergy Mild rash Verified 12/19/24 06:13 Home Medications ?Medication ?Instructions ?Recorded ?Confirmed ?Type blood-glucose,business operations coordinator,cont #1 ea 04/08/22 11/16/24 Rx (Dexcom G6 Industry Analyst) meloxicam 7.5 mg tablet 7.5 mg PO DAILY PRN Pain 07/10/22 12/19/24 History CPAP #1 ea 12/01/23 11/16/24 Rx rosuvastatin 5 mg tablet 5 mg PO DAILY #90 tabs 03/13/24 12/19/24 Rx pen needle, diabetic 32 gauge x #400 ea 05/23/24 11/16/24 Rx /32 (BD Ultra-Fine Asya Pen Needle) magnesium glycinate 100 mg (as 200 mg PO DAILY 08/03/24 12/19/24 History glycinate) tablet multivitamin with minerals-folic 1 tablet PO DAILY 08/03/24 12/19/24 History acid 0.4 mg tablet blood-glucose transmitter (Dexcom #3 ea 09/22/24 11/16/24 Rx G6 Transmitter device) insulin glargine 100 unit/mL (3 42 unit (0.42 mL) subcut QPM #15 mL 09/27/24 12/19/24 Rx mL) subcutaneous pen (Lantus Solostar U-100 Insulin) blood-glucose sensor (Dexcom G6 #3 ea 10/04/24 11/16/24 Rx Sensor device) insulin aspart U-100 100 unit/mL 20 unit (0.2 mL) subcut TID 3 11/16/24 12/19/24 Rx (3 mL) subcutaneous pen (Novolog months #60 mL FlexPen U-100 Insulin aspart) tramadol 50 mg tablet 50 mg PO Q4H PRN pain #30 tabs 12/04/24 12/19/24 Rx Patient hx anesthesia problems: none Family hx anesthesia problems: none Results Review: All pre-operative results and documents have been reviewed as part of the pre- operative evaluation. [facility] Past Medical History Medical History (Updated 12/18/24 @ 13:33 by Edgard Slaughter DO) Diabetes type 2, controlled Central sleep apnea MIRTHA (obstructive sleep apnea) Fatigue Mixed hyperlipidemia Surgical History Surgical History History of appendectomy Family History Family History Father Diabetes mellitus Hypertension Hyperlipidemia Grandparent Diabetes mellitus Hypertension Cerebrovascular accident Other Family history of hypercholesterolemia Social History Social History Smoking packs per day: 1 Smoking cigarettes per day: 20.0 Years smoked: 35 Smoking pack-years: 35.00 Smoking status: Former smoker Tobacco type: cigarettes and e-cigarettes/vaping Second hand tobacco smoke exposure: Yes Smoking end date: 11/19/23 Additional smoking assessment comments: CURRENTLY VAPES NICOTINE DAILY Alcohol intake: current Drinks per week: 5 Alcohol use details: social Substance use: never Substance use type: does not use Do You Feel Safe in your Home?: Yes Lack of Transportation: No Lack of Food: Never True Current Housing: I Have Housing Concerned About Future Housing: No Difficulty Paying Gas/Electric Bills: No Difficulty Paying for Meds: No Currently Unemployed: No Education: High School Diploma/GED Difficulty w/ Childcare or Family Care: No Living arrangements: with family Occupation/Education: occupation Gender identity (if verbalized by the patient): Male Spiritual care concerns: No Anes - Eval Final PreProcedure Day of Procedure 12/18/24 13:32 Patient weight: obese Heart: regular rate and rhythm Lungs: clear to auscultation Airway: Mallampati scale class III Neurological: alert and oriented Last oral intake: >/= 8 hours ASA classification: III Emergent: no Anesthetic plan: proceed Anesthesia type and monitoring: general GIVS and standard monitoring Results Review: All pre-operative results and documents have been reviewed as part of the pre- operative evaluation. Informed Consent: The patient's anesthetic plan and its attendant risks and benefits were discussed with the patient/family/POA. Questions were solicited and answers provided to the satisfaction of the patient/family/POA.
--- NOTE | ~2024-12-19 | XR_ITS ---
XR fluoroscopy no charge Indication: Thermal radiofrequency ablation bilateral C5, C6 and C7 medial branches TECHNIQUE: Fluoroscopy used during Thermal radiofrequency ablation bilateral C5, C6 and C7 medial br anches performed by [Shawn Simon MD] on 12/19/2024. 52 seconds of fluoroscopy with 160 fluor oscopic images captured. FINDINGS: Correlate with procedure note. IMPRESSION: Fluoroscopy used during Thermal radiofrequency ablation bilateral C5, C6 and C7 medial br anches. Reviewed, dictated and finalized at location A. IMPRESSION: Fluoroscopy used during Thermal radiofrequency ablation bilateral C 5, C6 and C7 medial branches.
--- OUTSIDE RECORDS SUMMARY | 2024-12-19 06:08 | XMS_ITS | Clinical Summary ---
Author Organization [facility] Address [facility], [id number] [place] [address] Care Team Providers Care City Route Driver Name Role Phone Unavailable Primary Care Provider [...]
[2024-12-19 06:16] VITALS: BP 141/95; PULSE 72; RESP 18; TEMP 36.5; O2SAT 99
[2024-12-19] MEDS: LACTATED RINGERS 1,000 ML 30 ML IV CONT (06:33)
[2024-12-19 06:37] LABS: Glucose Point of Care 147 mg/dl (65-105)
--- NOTE | 2024-12-19 07:28 | P.HP_ITS ---
History of Present Illness History of Present Illness Consent: Risks, benefits, and alternatives have been discussed and questions answered. Patient agrees to proceed with procedure. Chief complaint: Spondylosis w/o Myelopathy/Radiculopathy, Spinal Narrative: Shawn Trevizo is a 54 year old male with chronic, recalcitrant and disabling bilateral cervical pain secondary to degenerative spondylosis with failure to respond to aggressive conservative measures including PT, oral and topical analgesics, opioid and nonopioid analgesics, rest, time and activity/behavioral modification over the past 1-2 years who presents for thermal radiofrequency ablation of the bilateral C5, C6, C7 medial branches/dorsal ramus addressing the bilateral C5-6, C6-7 facet joints under fluoroscopic guidance. Review of Systems Review of Systems: Patient denies any new infectious, allergic, cardiopulmonary, neurologic or constitutional symptoms or changes in activity tolerance or exercise capacity including new or progressive SOB/SMITH, peripheral edema, productive cough, dysuria, nausea/vomiting, diarrhea, weight change, fevers/chills/night sweats, new or progressive neurologic deficit, cognitive or mood changes since last seen, except as documented in the HPI. All systems reviewed & are unremarkable except as noted in HPI and below PMFSH Past Medical History Medical History (Updated 12/18/24 @ 13:33 by Edgard Slaughter DO) Diabetes type 2, controlled Central sleep apnea MIRTHA (obstructive sleep apnea) Fatigue Mixed hyperlipidemia Surgical History Surgical History History of appendectomy Family History Family History Father Diabetes mellitus Hypertension Hyperlipidemia Grandparent Diabetes mellitus Hypertension Cerebrovascular accident Other Family history of hypercholesterolemia Social History Social History Smoking packs per day: 1 Smoking cigarettes per day: 20.0 Years smoked: 35 Smoking pack-years: 35.00 Smoking status: Former smoker Tobacco type: cigarettes and e-cigarettes/vaping Second hand tobacco smoke exposure: Yes Smoking end date: 11/19/23 Additional smoking assessment comments: CURRENTLY VAPES NICOTINE DAILY Alcohol intake: current Drinks per week: 5 Alcohol use details: social Substance use: never Substance use type: does not use Do You Feel Safe in your Home?: Yes Lack of Transportation: No Lack of Food: Never True Current Housing: I Have Housing Concerned About Future Housing: No Difficulty Paying Gas/Electric Bills: No Difficulty Paying for Meds: No Currently Unemployed: No Education: High School Diploma/GED Difficulty w/ Childcare or Family Care: No Living arrangements: with family Occupation/Education: occupation Gender identity (if verbalized by the patient): Male Spiritual care concerns: No Meds Home Medications and Allergies Home Medications ?Medication ?Instructions ?Recorded ?Confirmed ?Type blood-glucose,android ios developer,cont #1 ea 04/08/22 11/16/24 Rx (Dexcom G6 Database Security Administrator) meloxicam 7.5 mg tablet 7.5 mg PO DAILY PRN Pain 07/10/22 12/19/24 History CPAP #1 ea 12/01/23 11/16/24 Rx rosuvastatin 5 mg tablet 5 mg PO DAILY #90 tabs 03/13/24 12/19/24 Rx pen needle, diabetic 32 gauge x #400 ea 05/23/24 11/16/24 Rx /32 (BD Ultra-Fine Asya Pen Needle) magnesium glycinate 100 mg (as 200 mg PO DAILY 08/03/24 12/19/24 History glycinate) tablet multivitamin with minerals-folic 1 tablet PO DAILY 08/03/24 12/19/24 History acid 0.4 mg tablet blood-glucose transmitter (Dexcom #3 ea 09/22/24 11/16/24 Rx G6 Transmitter device) insulin glargine 100 unit/mL (3 42 unit (0.42 mL) subcut QPM #15 mL 09/27/24 12/19/24 Rx mL) subcutaneous pen (Lantus Solostar U-100 Insulin) blood-glucose sensor (Dexcom G6 #3 ea 10/04/24 11/16/24 Rx Sensor device) insulin aspart U-100 100 unit/mL 20 unit (0.2 mL) subcut TID 3 11/16/24 12/19/24 Rx (3 mL) subcutaneous pen (Novolog months #60 mL FlexPen U-100 Insulin aspart) tramadol 50 mg tablet 50 mg PO Q4H PRN pain #30 tabs 12/04/24 12/19/24 Rx Allergies Allergy/AdvReac Type Severity Reaction Status Date / Time ampicillin Allergy Mild rash Verified 12/19/24 06:13 Vital Signs Vital Signs - 24 hr 12/19/24 06:16 Temperature 97.7 F Pulse Rate 72 Respiratory Rate 18 Blood Pressure 141/95 H Pulse Oximetry 99 Oxygen Delivery Room Air Exam Narrative: The patient's physical exam is essentially unchanged from prior examination on 11/06/2024. Specifically, patient demonstrates normal lung capacity, tidal volume and respiratory rate without wheezes, crackles, rales or rubs. Heart rate and rhythm are regular without murmurs, gallops or rubs. No JVD. Pulses 2+ globally without increasing peripheral edema. AAOx3 with no evidence of confusion, intoxication or altered mental state, NC/AT without acute distress or altered consciousness. Speech, cognition, mood, insight and judgment at baseline and within normal limits. Assessment and Plan Assessment and plan (1) Cervical spondylosis: Code(s): M47.812 - Spondylosis without myelopathy or radiculopathy, cervical region Status: Acute Assessment and Plan: Proceed as planned with thermal radiofrequency ablation of the bilateral C5, C6, C7 medial branches/dorsal ramus addressing the bilateral C5-6, C6-7 facet joints under fluoroscopic guidance. (2) Cervicalgia: Code(s): M54.2 - Cervicalgia Status: Acute (3) Chronic pain: Code(s): G89.29 - Other chronic pain Status: Acute
--- NOTE | 2024-12-19 07:31 | P.OP_ITS ---
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 Surgeon Shawn Simon MD Executive Consultant None. Anesthesia Local (w/ IV Moderate Sedation) Description of Procedure INFORMED CONSENT: Risks, benefits and alternatives to the procedure were discussed in detail with the patient who expressed explicit understanding and consent to proceed. Patient was informed verbally and in written form regarding the risks associated with the procedure including the low risk of serious infection, bleeding/bruising, allergic reaction, nerve or organ injury, paralysis, procedural site pain or discomfort, worsening pain and/or mobility, failure to treat and/or disfigurement. The patient expressed explicit understanding and consent to proceed. All materials required for the procedure were available prior to procedure start. Site and side was marked prior to procedure and confirmed in the presence of the patient. PROCEDURE IN DETAIL: The patient was brought to the procedural suite and placed in the prone position with head stabilized with a horseshoe pillow and cervical ramp. Patient was made comfortable with use of pillows under the head/chest, hips and ankles. Skin overlying the injection site on the affected side(s) was prepared broadly with 10mL tinted ChloraPrep applicator and draped in a sterile manner. Strict aseptic technique was utilized throughout. The endplates of the vertebral bodies at the site(s) of interest were aligned in the AP view. Ipsilateral oblique angulation was utilized to optimize visualization of the pars interarticularis at each target site. Local anesthesia was established by infiltration with approximately 5 mL of 1% lidocaine via a 1-1/2 inch 27-gauge needle. An 18-gauge 100mm RF needle with curved 10mm active tip was advanced in the AP view until the needle tip contacted the periosteum of the pars interarticularis at the target site, right C5 parallel to the course of the targeted peripheral nerve branch. Lateral view was utilized to adjust and confirm the appropriate placement of the needle tip just anterior to the center point of the interarticularis, bisecting the distance between adjacent joint spaces. The appropriately-sized RF cannula was inserted into the RF needle and motor stimulation performed with no subjective or objective evidence of recruited muscle activity with stimulation up to 2.0 volts at a frequency of 2Hz. A 1.5 mL solution of 2.0% PF lidocaine was injected via the appropriately positioned RF cannula after negative aspiration. The grounding electrode was confirmed to be in place with good contact and functioning appropriately. After a 90s pause, lesioning was performed to 90 degrees centigrade for 90s ensuring lack of symptoms in the extremity throughout. Needle was withdrawn approximately 1-2 mm and rotated 180 degrees at each level. Lesioning was then repeated in a similar manner as above. The patient tolerated this well. No parasthesias were elicited. Needle was removed completely intact without difficulty. The same procedure was then repeated for all intended levels/ structures on the ipsilateral side, right C6, C7, with identical methodology, modified to compensa te for new location, with similar results and no evidence of complication. The same procedure was then repeated for all intended levels/ structures on the contralateral side, left C5, C6, C7, with identical methodology, modified to compensate for new contralateral location/approach, with similar results and no evidence of complication. Images were saved and documented in the patient's chart. The patient's skin was cleaned and sterile bandages applied. The patient tolerated the procedure well. The patient was transported to the recovery area in stable condition where they were observed for an appropriate amount of time prior to discharge, without evidence of complication. The patient was instructed to avoid excessive activity for the next 48 hours, including overhead work, reaching and device/computer usage. Showers only for 48 hours. They were instructed not to drive or operate heavy machinery for 24 hours. They are to monitor for severe headaches, fevers, chills, night sweats, erythema/swelling at the site or any other signs of infection, bleeding/bruising, bowel or bladder changes as well as new pain, weakness or numbness in the upper or lower extremity. Should they notice these changes, they are instructed to call our office immediately or report directly to the nearest Emergency Department if no answer or if after posted office hours. Complications None Condition Stable Disposition PACU [facility] Billing Surgery - Charge Forward: Surgery Billing
--- NOTE | 2024-12-19 07:31 | WPDHPUPDATE1 ---
History and Physical Update Update Date/Time: 12/19/24 07:31 History and Physical has been reviewed, including an updated exam of the patient. There are NO changes in the patient's condition. Risks, benefits, and alternatives have been discussed and questions answered. Patient agrees to proceed with procedure.
[2024-12-19] MEDS: BUPivacaine HCL 0.5% 10 ML AMP 5 ML INFILTRATE (08:14)
[2024-12-19] MEDS: LIDOCAINE 1% PF INJ 5 ML VIAL INFILTRATE (08:14)
[2024-12-19] MEDS: LIDOCAINE 2% PF LOCAL INJ 5 ML VIAL 10 ML INFILTRATE (08:14)
[2024-12-19 08:20] VITALS: BP 140/88; PULSE 76; RESP 16; O2SAT 96
--- NOTE | 2024-12-19 08:25 | WPDANESPN ---
Anes - Prog Note Post-Op Date/Time: 12/19/24 08:25 Cardiovascular status: normal Respiratory status: normal Airway patency: baseline Mental status: baseline Post-Op hydration status: normal Vital Signs: Last Vital Signs Temp 36.5 C 12/19/24 06:16 Pulse 72 12/19/24 06:16 Resp 18 12/19/24 06:16 BP 141/95 H 12/19/24 06:16 Pulse Ox 99 12/19/24 06:16 O2 Del Method Room Air 12/19/24 06:16 Pain Score (VAS): 0 12/19/24 06:34 POC Capillary Glucose 147 H Post-procedural complaints: none Patient Feedback: Patient satisfied with anesthetic care. Other Findings: Patient vital signs back to baseline. Patient denies nausea and vomiting. Patient's pain under control. Patient OK for discharge.
[2024-12-19] MEDS: oxyCODONE HCL (*CRX) 5 MG TAB IR PO (08:40)
[2024-12-19 08:50] VITALS: BP 121/83; PULSE 77; RESP 16; O2SAT 97
--- NOTE | 2024-12-19 08:55 | SUR.PHASEII ---
patient blood sugar is 186 on personal monitoring device
[2024-12-19 09:05] VITALS: BP 132/86; PULSE 72; RESP 18; O2SAT 97
== END 2024-12-19 09:10 | disposition home or self-care (01) ==
PROVIDERS: PCP Family Medicine; Visit Provider Anesthesiology Pain Medicine
PROC: (CPT 64633; principal; 2024-12-19 07:30)
DX: M47.812 Spondylosis without myelopathy or radiculopathy, cervical region (principal); G89.29 Other chronic pain
CPT/HCPCS: 64633 ×2; 64634 ×2; 99199